=== PATIENT | female | born 1990 | race Caucasian/White ===

== ENCOUNTER 2018-04-28 01:05 | Inpatient (IN) | payer BC, OTHER ==
[2018-04-28] MEDS ORDERED: ONDANSETRON 4 MG/2 ML VIAL IVP ONE (01:20)
[2018-04-28] MEDS ORDERED: NS 1,000 ML IV ONE ×2 (01:20)
[2018-04-28] MEDS ORDERED: KETOROLAC 15 MG/1 ML SDV IVP ONE (01:21)
--- NOTE | 2018-04-28 01:24 | EDPHY ---
H & P Stated Complaint: abd pain, N/V x 4 hours, decreased urine Time Seen by Provider: 04/28/18 01:14 HPI/ROS: HPI The patient presents with abdominal pain with nausea and vomiting which began earlier tonight. Symptoms started about 8 hr ago with a dull left-sided abdominal pain which became sharp in nature. The pain is associated with nausea and subsequently 3 episodes of nonbloody nonbilious emesis. She says that the pain began to spread and is now throughout her abdomen and mostly sharp in nature. It was worse when she drink water and worse when she moves around. She has never had this pain before. She denies any diarrhea, constipation, fever. She did note that her urine was very dark and she questions if she is dehydrated. Her last menstrual period was 1 week ago and was normal for her. She does not have any vaginal discharge. REVIEW OF SYSTEMS 10 systems were reviewed and negative with the exception of the elements mentioned in the history of present illness. PMHx: Healthy Soc Hx: FHx: PHYSICAL General Appearance: Alert, uncomfortable appearing Eyes: Pupils equal and round no pallor or injection ENT, Mouth: Mucous membranes dry Respiratory: There are no retractions, lungs are clear to auscultation Cardiovascular: Regular rate and rhythm Gastrointestinal: Abdomen is soft and tender in the left lower and upper quadrants, there is no rebound or guarding Neurological: A&O, moves all extremities Skin: Warm and dry, no rashes Musculoskeletal: Neck is supple non tender Extremities: symmetrical, full range of motion Psychiatric: Patient is oriented X 3, there is no agitation Source: Patient Exam Limitations: No limitations - Personal History Current Tetanus/Diphtheria Vaccine: Unsure Current Tetanus Diphtheria and Acellular Pertussis (TDAP): Unsure - Medical/Surgical History Hx Asthma: No Hx Chronic Respiratory Disease: No Hx Diabetes: No Hx Cardiac Disease: No Hx Renal Disease: No Hx Cirrhosis: No Hx Alcoholism: No Hx HIV/AIDS: No Hx Splenectomy or Spleen Trauma: No - Social History Smoking Status: Current every day smoker Constitutional: Initial Vital Signs Temperature (C) 36.4 C 04/28/18 01:08 Heart Rate 90 04/28/18 01:08 Respiratory Rate 20 04/28/18 01:08 Blood Pressure 125/77 H 04/28/18 01:08 O2 Sat (%) 98 04/28/18 01:08 O2 Delivery Mode Room Air Allergies/Adverse Reactions: No Known Allergies Allergy (Unverified 04/28/18 01:07) Home Medications: Medication Instructions Recorded NK [No Known Home Meds] 04/28/18 Medical Decision Making - Diagnostics Imaging Results: Pelvic ultrasound shows trace amount of free fluid with no acute findings, discussed with Dr. Crane of Radiology. CT scan abdomen pelvis with IV contrast demonstrates likely perforated diverticulitis with pneumoperitoneum, discussed with Dr. Crane of Radiology. Differential Diagnosis: 27-year-old healthy female presents with 8 hr of what was initially left-sided abdominal pain which is now spread throughout her abdomen is associated with nausea and vomiting. Differential diagnosis includes diverticulitis, ovarian cyst with rupture, ovarian torsion, ureterolithiasis, pyelonephritis, appendicitis. In the emergency department, patient was given IV fluids and medication for pain. Labs were checked and revealed a leukocytosis. Pelvic ultrasound was performed and was unremarkable. I reassessed the patient and she had ongoing tenderness on exam. Thus, decision was made for CT scan which demonstrated perforated diverticulitis with free air. Patient was given broad-spectrum antibiotics. I consulted with the on-call general surgeon Dr. Graham. He will take the patient directly to the operating room. Of note, patient's mother suffers from diverticulitis and patient reports that she has had mild left lower quadrant abdominal pain for the last 2 weeks which she thought was gas. - Data Points Laboratory Results: Laboratory Results 04/28/18 01:20 04/28/18 01:20 04/28/18 04/28/18 04/28/18 03:30 01:20 01:20 WBC RBC Hgb Hct MCV MCH MCHC RDW Plt Count MPV Neut % (Auto) Lymph % (Auto) [place] % (Auto) Eos % (Auto) Baso % (Auto) Nucleat RBC Rel Count Absolute Neuts (auto) Absolute Lymphs (auto) Absolute Monos (auto) Absolute Eos (auto) Absolute Basos (auto) Absolute Nucleated RBC Immature Gran % Immature Gran # Sodium 139 mEq/L mEq/L (135-145) Potassium 4.3 mEq/L mEq/L (3.3-5.0) Chloride 101 mEq/L mEq/L (97-110) Carbon Dioxide 25 mEq/l mEq/l (22-31) Anion Gap 13 mEq/L mEq/L (6-14) BUN 13 mg/dL mg/dL (7-23) Creatinine 0.6 mg/dL mg/dL (0.6-1.0) Estimated GFR > 60 Glucose 128 mg/dL H mg/dL (70-100) Calcium 9.9 mg/dL mg/dL (8.5-10.4) Total Bilirubin 1.0 mg/dL mg/dL (0.1-1.4) Conjugated Bilirubin 0.2 mg/dL mg/dL (0.0-0.5) Unconjugated Bilirubin 0.8 mg/dL mg/dL (0.0-1.1) AST 27 IU/L IU/L (14-46) ALT 33 IU/L IU/L (9-52) Alkaline Phosphatase 77 IU/L IU/L (38-126) Total Protein 8.4 g/dL H g/dL (6.3-8.2) Albumin 4.7 g/dL g/dL (3.5-5.0) Lipase 157 IU/L IU/L (23-300) Beta HCG, Qual NEGATIVE Urine Color YELLOW Urine Appearance CLEAR Urine pH 5.0 (5.0-7.5) Ur Specific [place] > 1.035 H (1.002-1.030) Urine Protein NEGATIVE (NEGATIVE) Urine Ketones 1+ H (NEGATIVE) Urine Blood NEGATIVE (NEGATIVE) Urine Nitrate NEGATIVE (NEGATIVE) Urine Bilirubin NEGATIVE (NEGATIVE) Urine Urobilinogen NEGATIVE EU EU (0.2-1.0) Ur Leukocyte Esterase NEGATIVE (NEGATIVE) Urine Glucose NEGATIVE (NEGATIVE) 04/28/18 01:20 WBC 14.61 10^3/uL H 10^3/uL (3.80-9.50) RBC 4.88 10^6/uL 10^6/uL (4.18-5.33) Hgb 15.6 g/dL g/dL (12.6-16.3) Hct 45.0 % % (38.0-47.0) MCV 92.2 fL fL (81.5-99.8) MCH 32.0 pg pg (27.9-34.1) MCHC 34.7 g/dL g/dL (32.4-36.7) RDW 12.7 % % (11.5-15.2) Plt Count 310 10^3/uL 10^3/uL (150-400) MPV 10.0 fL fL (8.7-11.7) Neut % (Auto) 84.8 % H % (39.3-74.2) Lymph % (Auto) 10.5 % L % (15.0-45.0) [place] % (Auto) 3.6 % L % (4.5-13.0) Eos % (Auto) 0.5 % L % (0.6-7.6) Baso % (Auto) 0.3 % % (0.3-1.7) Nucleat RBC Rel Count 0.0 % % (0.0-0.2) Absolute Neuts (auto) 12.38 10^3/uL H 10^3/uL (1.70-6.50) Absolute Lymphs (auto) 1.54 10^3/uL 10^3/uL (1.00-3.00) Absolute Monos (auto) 0.52 10^3/uL 10^3/uL (0.30-0.80) Absolute Eos (auto) 0.08 10^3/uL 10^3/uL (0.03-0.40) Absolute Basos (auto) 0.04 10^3/uL 10^3/uL (0.02-0.10) Absolute Nucleated RBC 0.00 10^3/uL 10^3/uL (0-0.01) Immature Gran % 0.3 % % (0.0-1.1) Immature Gran # 0.05 10^3/uL 10^3/uL (0.00-0.10) Sodium Potassium Chloride Carbon Dioxide Anion Gap BUN Creatinine Estimated GFR Glucose Calcium Total Bilirubin Conjugated Bilirubin Unconjugated Bilirubin AST ALT Alkaline Phosphatase Total Protein Albumin Lipase Beta HCG, Qual Urine Color Urine Appearance Urine pH Ur Specific [place] Urine Protein Urine Ketones Urine Blood Urine Nitrate Urine Bilirubin Urine Urobilinogen Ur Leukocyte Esterase Urine Glucose Medications Given: Discontinued Medications Hydromorphone HCl (Dilaudid) 0.5 mg IVP EDNOW ONE Stop: 04/28/18 02:13 Last Admin: 04/28/18 02:15 Dose: 0.5 mg Hydromorphone HCl (Dilaudid) 0.5 mg IVP EDNOW ONE Stop: 04/28/18 03:51 Last Admin: 04/28/18 04:12 Dose: 0.5 mg Sodium Chloride (Ns) 1,000 mls @ 0 mls/hr IV EDNOW ONE; Wide Open PRN Reason: Protocol Stop: 04/28/18 01:21 Last Admin: 04/28/18 01:25 Dose: 1,000 mls Sodium Chloride (Ns) 1,000 mls @ 0 mls/hr IV EDNOW ONE; Wide Open PRN Reason: Protocol Stop: 04/28/18 01:21 Last Admin: 04/28/18 01:25 Dose: 1,000 mls Ceftriaxone Sodium/Dextrose (Rocephin 1 Gm (Premix)) 50 mls @ 100 mls/hr IV EDNOW ONE PRN Reason: Protocol Stop: 04/28/18 04:10 Last Admin: 04/28/18 03:51 Dose: 50 mls Metronidazole/Sodium Chloride (Flagyl 500 Mg (Premix)) 100 mls @ 100 mls/hr IV EDNOW ONE PRN Reason: Protocol Stop: 04/28/18 04:40 Last Admin: 04/28/18 04:12 Dose: 100 mls Ketorolac Tromethamine (Toradol) 15 mg IVP EDNOW ONE Stop: 04/28/18 01:22 Last Admin: 04/28/18 01:25 Dose: 15 mg Ondansetron HCl (Zofran) 4 mg IVP EDNOW ONE Stop: 04/28/18 01:21 Last Admin: 04/28/18 01:25 Dose: 4 mg Departure - Departure Disposition: [facility] Acute Clinical Impression: Diverticulitis, Pneumoperitoneum, Leukocytosis Condition: Fair
[2018-04-28 01:26] LABS: PLATELET COUNT 310 10^3/uL (150-400)
[2018-04-28] MEDS ORDERED: HYDROmorphONE/DILAUDID 2 MG/ML INJ IVP ONE ×2 (02:12→03:50)
[2018-04-28] MEDS ORDERED: IOPAMIDOL (ISOVUE 370) 100 ML BTL IV ONE (03:10)
--- NOTE | 2018-04-28 04:28 | PDGENHP ---
History and Physical - Chief Complaint abdominal pain - History of Present Illness Patient is an otherwise healthy 27yo female who presents with acute onset abdominal pain. States that she has had some vague abdominal pain for the past month or so which has caused her to miss work a few times. It has been getting progressively worse over the past week and she was going to see her PCP but the pain got acutely worse last night. PReviously, her pain was described as LLQ, vague, crampy 4/10 in intensity. This evening it progressed to her entire abdomen and is 9/10 and is sharp and constant. No fevers, no chills, no nausea, no vomiting. History Information - Allergies/Home Medication List Allergies/Adverse Reactions: No Known Allergies Allergy (Unverified 04/28/18 01:07) Home Medications: NK [No Known Home Meds] 04/28/18 [Last Taken Unknown] I have personally reviewed and updated: family history, medical history, social history, surgical history - Past Medical History Additional medical history: anxiety - Surgical History Reports: no pertinent surgical hx - Family History Additional family history: mom has had diverticulitis - Social History Smoking Status: Current every day smoker Alcohol Use: Occasionally Additional social history: works at [employer] Review of Systems Review of Systems: ROS: 10pt was reviewed & negative except for what was stated in HPI & below Physical Exam Physical Exam: Temp Pulse Resp BP Pulse Ox 36.7 C 97 18 106/71 95 04/28/18 03:30 04/28/18 04:17 04/28/18 04:17 04/28/18 04:17 04/28/18 04:17 Constitutional: appears nourished, uncomfortable Eyes: PERRL, anicteric sclera, EOMI Ears, Nose, Mouth, Throat: moist mucous membranes, hearing normal, ears appear normal, no oral mucosal ulcers Cardiovascular: regular rate and rhythym, no murmur, rub, or gallop, No edema Respiratory: no respiratory distress, no rales or rhonchi, clear to auscultation Gastrointestinal: other (TTP in all quadrants, +rebound, +guarding, she is peritoneal) Genitourinary: no bladder fullness, no bladder tenderness Skin: warm, normal color, no rashes or abrasions, no fluctuance, no induration, No mottled Musculoskeletal: full muscle strength, no muscle tenderness, normal joint ROM, no joint effusions Psychiatric: interacting appropriately, not anxious, not encephalopathic, thought process linear Lymph, Heme, Immunologic: no cervical LAD, no supraclavicular LAD Lab Data & Imaging Review 04/28/18 01:20 04/28/18 01:20 WBC 14.61 10^3/uL (3.80-9.50) H 04/28/18 01:20 RBC 4.88 10^6/uL (4.18-5.33) 04/28/18 01:20 Hgb 15.6 g/dL (12.6-16.3) 04/28/18 01:20 Hct 45.0 % (38.0-47.0) 04/28/18 01:20 MCV 92.2 fL (81.5-99.8) 04/28/18 01:20 MCH 32.0 pg (27.9-34.1) 04/28/18 01:20 MCHC 34.7 g/dL (32.4-36.7) 04/28/18 01:20 RDW 12.7 % (11.5-15.2) 04/28/18 01:20 Plt Count 310 10^3/uL (150-400) 04/28/18 01:20 MPV 10.0 fL (8.7-11.7) 04/28/18 01:20 Neut % (Auto) 84.8 % (39.3-74.2) H 04/28/18 01:20 Lymph % (Auto) 10.5 % (15.0-45.0) L 04/28/18 01:20 [place] % (Auto) 3.6 % (4.5-13.0) L 04/28/18 01:20 Eos % (Auto) 0.5 % (0.6-7.6) L 04/28/18 01:20 Baso % (Auto) 0.3 % (0.3-1.7) 04/28/18 01:20 Nucleat RBC Rel Count 0.0 % (0.0-0.2) 04/28/18 01:20 Absolute Neuts (auto) 12.38 10^3/uL (1.70-6.50) H 04/28/18 01:20 Absolute Lymphs (auto) 1.54 10^3/uL (1.00-3.00) 04/28/18 01:20 Absolute Monos (auto) 0.52 10^3/uL (0.30-0.80) 04/28/18 01:20 Absolute Eos (auto) 0.08 10^3/uL (0.03-0.40) 04/28/18 01:20 Absolute Basos (auto) 0.04 10^3/uL (0.02-0.10) 04/28/18 01:20 Absolute Nucleated RBC 0.00 10^3/uL (0-0.01) 04/28/18 01:20 Immature Gran % 0.3 % (0.0-1.1) 04/28/18 01:20 Immature Gran # 0.05 10^3/uL (0.00-0.10) 04/28/18 01:20 Sodium 139 mEq/L (135-145) 04/28/18 01:20 Potassium 4.3 mEq/L (3.3-5.0) 04/28/18 01:20 Chloride 101 mEq/L (97-110) 04/28/18 01:20 Carbon Dioxide 25 mEq/l (22-31) 04/28/18 01:20 Anion Gap 13 mEq/L (6-14) 04/28/18 01:20 BUN 13 mg/dL (7-23) 04/28/18 01:20 Creatinine 0.6 mg/dL (0.6-1.0) 04/28/18 01:20 Estimated GFR > 60 04/28/18 01:20 Glucose 128 mg/dL (70-100) H 04/28/18 01:20 Calcium 9.9 mg/dL (8.5-10.4) 04/28/18 01:20 Total Bilirubin 1.0 mg/dL (0.1-1.4) 04/28/18 01:20 Conjugated Bilirubin 0.2 mg/dL (0.0-0.5) 04/28/18 01:20 Unconjugated Bilirubin 0.8 mg/dL (0.0-1.1) 04/28/18 01:20 AST 27 IU/L (14-46) 04/28/18 01:20 ALT 33 IU/L (9-52) 04/28/18 01:20 Alkaline Phosphatase 77 IU/L (38-126) 04/28/18 01:20 Total Protein 8.4 g/dL (6.3-8.2) H 04/28/18 01:20 Albumin 4.7 g/dL (3.5-5.0) 04/28/18 01:20 Lipase 157 IU/L (23-300) 04/28/18 01:20 Beta HCG, Qual NEGATIVE 04/28/18 01:20 Urine Color YELLOW 04/28/18 03:30 Urine Appearance CLEAR 04/28/18 03:30 Urine pH 5.0 (5.0-7.5) 04/28/18 03:30 Ur Specific [place] > 1.035 (1.002-1.030) H 04/28/18 03:30 Urine Protein NEGATIVE (NEGATIVE) 04/28/18 03:30 Urine Ketones 1+ (NEGATIVE) H 04/28/18 03:30 Urine Blood NEGATIVE (NEGATIVE) 04/28/18 03:30 Urine Nitrate NEGATIVE (NEGATIVE) 04/28/18 03:30 Urine Bilirubin NEGATIVE (NEGATIVE) 04/28/18 03:30 Urine Urobilinogen NEGATIVE EU (0.2-1.0) 04/28/18 03:30 Ur Leukocyte Esterase NEGATIVE (NEGATIVE) 04/28/18 03:30 Urine Glucose NEGATIVE (NEGATIVE) 04/28/18 03:30 Visualized and Interpreted imaging results: Yes Interpretation: sig amt of free air, free fluid in pelvis. Distal colon looks mildly thickened c/w likely perforated divertic Assessment & Plan Plan: 27yo Female with perorated viscus and moderate amt of free air in abdomen - source is likely sigmoid colon - IV abx - plan for OR, ex-lap, colectomy, possible colostomy. I discussed all these possibilities with the patient in the ED. She is amenable and wishes to proceed with surgery
[2018-04-28] MEDS ORDERED: MIDAZOLAM 2 MG/2 ML VIAL ONE (04:56)
[2018-04-28] MEDS ORDERED: fentaNYL 100 MCG/2 ML INJ ONE ×3 (04:57→07:28)
[2018-04-28] MEDS ORDERED: PROPOFOL 200 MG/20 ML VIAL ONE (04:57)
--- NOTE | 2018-04-28 05:25 | PDANEPAE ---
ANE Past Medical History - Pulmonary History Hx Oxygen in Use at Home: No Hx Sleep Apnea: No - Endocrine History Hx Diabetes: No - Chronic Pain History Chronic Pain: No ANE Review of Systems Review of Systems: ANE Patient History - Allergies Allergies/Adverse Reactions: No Known Allergies Allergy (Unverified 04/28/18 01:07) - Home Medications Home Medications: NK [No Known Home Meds] 04/28/18 [Last Taken Unknown] - NPO status NPO Since - Liquids (Date): 04/27/18 NPO Since - Liquids (Time): 18:00 NPO Since - Solids (Date): 04/27/18 NPO Since - Solids (Time): 18:00 - Smoking Hx Smoking Status: Current every day smoker - Alcohol Use Alcohol Use: Occasionally ANE Labs/Vital Signs - Labs Result Diagrams: 04/28/18 01:20 04/28/18 01:20 - Vital Signs Blood Pressure: 112/65 Heart Rate: 75 Respiratory Rate: 16 O2 Sat (%): 97 Height: 172.72 cm Weight: 74.843 kg ANE Physical Exam - Airway Mallampati Score: Class 1 - ASA Status ASA Status: I, E ANE Anesthesia Plan Anesthesia Plan: general endotracheal anesthesia Urgent/Emergent Case: Rakesh heredia completed preop but documented later for safe timely pt care
[2018-04-28] MEDS ORDERED: METOCLOPRAMIDE 10 MG/2 ML VIAL ONE (05:41)
[2018-04-28] MEDS ORDERED: ROCURONIUM 50 MG/5 ML VIAL ONE (05:41)
[2018-04-28] MEDS ORDERED: ONDANSETRON 4 MG/2 ML VIAL ONE ×2 (05:41→07:30)
[2018-04-28] MEDS ORDERED: ONDANSETRON 4 MG/2 ML VIAL IVP PRN ×2 (07:20→07:27)
[2018-04-28] MEDS ORDERED: ONDANSETRON DISINTEGRATING 4 MG TAB PO PRN (07:20)
[2018-04-28] MEDS ORDERED: ACETAMINOPHEN 325 MG TAB PO PRN (07:20)
[2018-04-28] MEDS ORDERED: PROMETHAZINE HCL 25 MG/ML INJ IVP PRN ×2 (07:20→07:27)
[2018-04-28] MEDS: fentaNYL 100 MCG/2 ML INJ IVP PRN ×2 (07:20→07:54)
--- NOTE | 2018-04-28 07:20 | POSTOPPROG ---
Post Op Note Date of Operation: 04/28/18 Surgeon: Osmani Graham Anesthesiologist: Dean Anesthesia: GET(General Endotracheal) Pre-op Diagnosis: perforated viscus Post-op Diagnosis: perforated descending colon, purulent peritonitis Procedure: ex-lap, descending colectomy, mob splenic flexure, appendectomy Findings: purulent fluid in abdomen, focal perf, resected and anastomosed Inf/Abcess present in the surg proc area at time of surgery?: Yes Depth: Organ Space EBL: Minimal Total fluids administered: 6000cc NS washout Specimen(s): descending colon
[2018-04-28] MEDS ORDERED: NALOXONE HCL 0.4 MG/ML INJ IVP PRN ×2 (07:23→07:27)
[2018-04-28] MEDS ORDERED: LR 500 ML IV PRN (07:27)
--- NOTE | 2018-04-28 07:29 | POSTANESTH ---
Post Anesthetic Evaluation Cardiovascular Status: Normal, Stable Respiratory Status: Normal, Stable Level of Consciousness/Mental Status: Can Participate in Eval Pain Control: Adequate, Prn Tx Ordered Nausea/Vomiting Control: Adequate, Prn Tx Ordered Complications Possibly Related to Anesthesia: None Noted
[2018-04-28] MEDS: HYDROmorphONE/DILAUDID 2 MG/ML INJ IVP PRN ×3 (07:33→08:53)
[2018-04-28] MEDS ORDERED: HYDROmorphONE/DILAUDID 2 MG/ML INJ ONE (07:37)
[2018-04-28] MEDS ORDERED: PROMETHAZINE HCL 25 MG/ML INJ ONE (07:50)
--- NOTE | 2018-04-28 09:26 | PDMN ---
Medical Necessity Medical necessity: Pt meets inpt criteria per MD order and [id number], Bowel Surgery: Colectomy, Partial, with or without Ostomy, by Laparoscopy, 3 days. Pt presenting w/increasing/severe abdominal pain, admitted w/perforated viscus and moderate amt free air in abdomen requiring surgical intervention: pt underwent ex-lap, descending colectomy, mob splenic flexure, and appendectomy. Anticiapte> 2MN for med nec ongoing post-op care after above surgery.
[2018-04-28] MEDS: D5W 1/2 NS W/ 20 KCl/L 1,000 ML IV SCH ×2 (09:37→20:46)
[2018-04-28] MEDS: HYDROmorphONE/DILAUDID 6 MG/30 ML PCA IV PRN ×2 (10:16→22:38)
--- NOTE | 2018-04-28 11:24 | GOP ---
DATE OF OPERATION: 04/28/2018 SURGEON: Osmani Graham MD PERSONNEL OFFICER: None. ANESTHESIA: General endotracheal. ANESTHESIOLOGIST: Bob Moran MD. PREOPERATIVE DIAGNOSIS: Perforated viscus. POSTOPERATIVE DIAGNOSIS: Intraabdominal free air and peritonitis secondary to perforated descending colon. PROCEDURE PERFORMED: 1. Exploratory laparotomy. 2. Resection of descending colon with reanastomosis. 3. Mobilization of splenic flexure. 4. Appendectomy. FINDINGS: There was purulent fluid upon entering the patient's abdomen. This was washed out. I turned my attention toward the patient's sigmoid colon which was mobilized and normal appearing. There was a focal perforation in the descending colon at the point where it transitioned likely into the sigmoid. I found no other significant pathology. This was subsequently resected and reanastomosed. An appendectomy was performed as the appendix appeared injected , likely from sitting in pus for a day or so. SPECIMENS: Appendix and descending colon. ESTIMATED BLOOD LOSS: 10 cc. DESCRIPTION OF PROCEDURE: The patient was greeted in the preoperative suite. Once again, risks, benefits, and alternatives were discussed. Consent was signed. She was then brought back to the operative suite, placed on the OR table in supine position. After all anesthesia machines including SCDs were on and functioning, a [employer] time-out was performed. After successful induction of general anesthesia, the patient was placed in low lithotomy position with all pressure points appropriately padded. A Dee catheter was placed. Her abdomen was prepped and draped in the typical sterile fashion. I commenced the procedure by making a generous midline incision, carrying it down through the subcutaneous tissue. The fascia was opened via the midline. Upon entering the abdomen, there was purulent fluid extruding from the abdomen and appropriate cultures were taken. The fluid was then washed out. Retractors were placed. I turned my attention toward the sigmoid colon which was disease free. I found no tics throughout the colon. While examining the descending colon, I found a focal area of perforation which had been walled off by some fat. I found no other significant pathology and the remainder of the bowel honestly looked healthy. I first irrigated the patient with 6 L sterile saline, removing all purulent fluid and noting clear effluent in the suction canister. I made the decision at this point in time to resect that portion using multiple fires of the TEJAL blue load stapler. After resection, the mesentery was taken with the Harmonic scalpel for reanastomosis. As we were significantly high in the descending colon, I chose to do a stapled anastomosis using again the TEJAL-75 blue load stapler, created a common colotomy. Common colotomy was closed with an additional staple fire and the staple line was oversewn. The mesentery was then run closed with a running 3-0 Vicryl. The anastomosis was hemostatic and widely patent. The appendix was inspected and it appeared somewhat injected but not frankly perforated. I created a defect at the base of the cecum, successfully stapled off the appendix, and took the mesoappendix with the Harmonic scalpel as the cecal base appeared healthy. The specimen was passed off. Clean closure was then brought into the field. The fascia was closed with a running #1 PDS suture. Subcutaneous tissue was irrigated and the skin was closed with manisha, over which a sterile dressing was placed. The patient was then extubated in the operative suite and taken to the PACU in satisfactory condition. DRAINS: None. COUNTS: All counts were reported as correct x2. /[id number]/MODL MTDD
[2018-04-29 06:16] LABS: PLATELET COUNT 205 10^3/uL (150-400)
[2018-04-29] MEDS: D5W 1/2 NS W/ 20 KCl/L 1,000 ML IV SCH ×2 (08:57→20:01)
--- NOTE | 2018-04-29 09:12 | SOAPPROG ---
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 Talked with her on how the system works. Also added PO muscle relaxer - ambulate today - continue clears, she is tolerating but doesnt have much bowel function - slow progress Plan: 04/29/18 09:09 Subjective: lot of pain this AM Objective: Vital Signs Temp Pulse Resp BP Pulse Ox 37.1 C 79 12 111/73 97 04/29/18 07:57 04/29/18 07:57 04/29/18 07:57 04/29/18 07:57 04/29/18 07:57 Microbiology 04/28/18 05:50 Gram Stain - Final Peritoneal Fluid - Anaerobic Tube/Swab Laboratory Results 04/29/18 04:25 04/29/18 04:25 04/28/18 04/29/18 04/30/18 05:59 05:59 05:59 Intake Total 2100 3771 1012 Output Total 3225 Balance 2100 546 1012 ICD10 Worksheet Patient Problems: Problems Problem Status Onset Diverticulitis Acute Leukocytosis Acute Pneumoperitoneum Acute
[2018-04-29] MEDS: CYCLOBENZAPRINE 10 MG TAB PO SCH ×3 (09:51→21:39)
[2018-04-29] MEDS: HYDROmorphONE/DILAUDID 6 MG/30 ML PCA IV PRN (12:41)
[2018-04-30 05:47] LABS: PLATELET COUNT 192 10^3/uL (150-400)
[2018-04-30] MEDS: D5W 1/2 NS W/ 20 KCl/L 1,000 ML IV SCH ×2 (05:58→16:57)
[2018-04-30] MEDS: HYDROmorphONE/DILAUDID 6 MG/30 ML PCA IV PRN ×2 (06:06→23:29)
[2018-04-30] MEDS: CYCLOBENZAPRINE 10 MG TAB PO SCH ×3 (08:06→22:03)
--- NOTE | 2018-04-30 09:09 | SOAPPROG ---
SOAP Progress Note Assessment/Plan: Assessment: 27yo F s/p ex-lap, colectomy, washout for colon perforation S: "Tired". 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 Got up oob some yesterday. Denies passing gas or BM yet. Tolerating clears, although did not have much yesterday. Denies nausea. O: Alert Afebrile VSS RRR No increased WOB Abdomen: soft, ttp, incision cdi, hypoactive BS Plan: Continue clears. D/c goldstein catheter. 04/30/18 09:06 Objective: Vital Signs Temp Pulse Resp BP Pulse Ox 37.0 C 61 16 95/48 L 91 L 04/30/18 07:49 04/30/18 07:49 04/30/18 07:49 04/30/18 07:49 04/30/18 07:49 Microbiology 04/28/18 05:50 Gram Stain - Final Peritoneal Fluid - Anaerobic Tube/Swab Laboratory Results 04/30/18 04:36 04/30/18 04:36 04/29/18 04/30/18 05/01/18 05:59 05:59 05:59 Intake Total 3771 3312 Output Total 8758 2054 Balance 546 1262 ICD10 Worksheet Patient Problems: Problems Problem Status Onset Diverticulitis Acute Leukocytosis Acute Pneumoperitoneum Acute
--- NOTE | 2018-04-30 13:28 | ASMTCMCOM ---
CM Note CM Note Notes: Pt is a 27 y/o female admitted for perforated diverticulitis. Pt went to surgery w/ Dr. Graham. Pt will d/c independent when medically stable. No therapies ordered at this time. CM available for changes. Plan: Independent Date Signed: 04/30/2018 01:27 PM Electronically Signed By:DERICK Babcock
[2018-05-01] MEDS: D5W 1/2 NS W/ 20 KCl/L 1,000 ML IV SCH (05:27)
[2018-05-01] MEDS: CYCLOBENZAPRINE 10 MG TAB PO SCH ×3 (09:32→21:38)
[2018-05-01] MEDS: DOCUSATE SODIUM 100 MG CAP PO SCH ×2 (13:49→21:38)
[2018-05-01] MEDS ORDERED: 1/2 NS 1,000 ML IV SCH (17:30)
[2018-05-01] MEDS ORDERED: NS 1,000 ML IV SCH (18:00)
[2018-05-01] MEDS: HYDROmorphONE/DILAUDID 6 MG/30 ML PCA IV PRN (19:26)
--- NOTE | 2018-05-01 20:02 | GCON ---
INFECTIOUS DISEASE CONSULTATION DATE OF CONSULTATION: 05/01/2018 REQUESTING PHYSICIAN: Osmani Graham M.D. REASON FOR CONSULTATION: Colonic perforation. HISTORY OF PRESENT ILLNESS: The patient is a 27-year-old female who I am asked to see in consultation for a colonic perforation felt to be most likely related to diverticular disease. The patient describes having approximately 2 months of intermittent left lower quadrant pain. This was associated with episodic fever and chills as well as night sweats. The patient notes that she developed more significant pain in the left lower quadrant over the last 2 weeks. This subsequently was followed by more severe diffuse abdominal pain prompting her evaluation in the emergency department. She did note associated nausea, vomiting and diarrhea. At the time of evaluation in the emergency department, she was noted to have a white blood cell count of 14.6. CT scan of the abdomen and pelvis was performed which showed transmural wall thickening with pericolonic inflammatory stranding in the distal descending colon with adjacent extraluminal air and pneumoperitoneum. She was taken to the operating room based on this finding, where there was no overt diverticulitis present but a perforation was localized in the descending colon where it transitioned to the sigmoid colon. Purulent fluid without feculent material was noted in the patient's abdominal cavity. The appendix was also removed given the presence of intraabdominal purulence. The patient had the area of perforation resected and she underwent reanastomosis. Gram stain of the peritoneal fluid showed 4+ white blood cells with no organisms being seen and has grown 3 different species of Bacteroides. The patient has been receiving ceftriaxone and metronidazole. Pathologic specimen was consistent with acute and chronic diverticulitis. Given the above findings, I am now asked to assist in her ongoing management. PAST MEDICAL HISTORY: Anxiety. PAST SURGICAL HISTORY: As above. CURRENT MEDICATIONS: Ceftriaxone 1 g IV daily, Flagyl 500 mg IV q.8 hours, Dilaudid GELATIN MAKER UTILITY, Flexeril 10 mg p.o. three times daily, Colace 100 mg p.o. twice daily, Zofran as needed. ALLERGIES: No known drug allergies. SOCIAL HISTORY: Patient smokes 1 pack per day. She drinks 2 alcoholic beverages daily. No history of injection drug use. FAMILY HISTORY: Diverticulitis. REVIEW OF SYSTEMS: Outside that noted in the HPI, remainder of 10-system review is unremarkable other than the patient has not started passing gas or taking oral intake. PHYSICAL EXAMINATION: VITAL SIGNS: Temperature 36.6, heart rate 76, respiratory rate 16, blood pressure 116/79, oxygen saturation 97% on room air. GENERAL: Patient is well nourished, well developed in no acute distress. She appears nontoxic. HEENT: There is no scleral icterus, conjunctival injection, or conjunctival petechiae. Oropharynx is clear with moist mucous membranes. Dentition in fair repair. No nasal discharge or sinus tenderness. NECK: Supple without palpable lymphadenopathy or thyromegaly. CHEST: Clear to auscultation bilaterally without adventitious sounds. Respiratory effort is normal. CARDIOVASCULAR: Regular rate and rhythm with a 2/6 systolic ejection murmur heard throughout. No gallops or rubs noted. ABDOMEN: Soft, mildly tender in the left lower quadrant. Midline incision shows intact staple line without erythema or drainage. Bowel sounds are not present. There is mild distention. MUSCULOSKELETAL: No cyanosis, clubbing, or edema. SKIN: No rashes present. No stigmata of endocarditis. Skin is warm and dry to touch. NEUROLOGIC: The patient is alert and interacts appropriately with examiner. Cranial nerves 2-12 are grossly intact. Sensation is grossly intact. Muscle tone and bulk are normal. LYMPHATICS: No cervical or supraclavicular nodes palpable. LABORATORY DATA: White blood cell count 6.8, hematocrit 33.0, platelets 192, neutrophils 48%, lymphocytes 41%. Serum creatinine 0.6. Beta HCG negative, urinalysis 1+ ketones at time of presentation. Cultures as outlined above, showing [address] scan as outlined above which was reviewed and interpreted by me. Pathologic specimen as outlined above. IMPRESSION: 1. Peritonitis associated with colonic perforation: The patient's pathologic specimen is felt to be compatible with diverticulitis, although this was not noted grossly intraoperatively. She is now status post resection of perforated area of colon. Culture show 3 species of Bacteroides, which is typical for enteric nitin. She is also at risk for gram-negative rods, although these have not been isolated to date. Currently, she is receiving ceftriaxone and metronidazole which is appropriate coverage for this disease entity. Ultimately , she can complete therapy with oral antibiotics when she is tolerating oral intake. Consideration would be for levofloxacin 750 mg orally daily and metronidazole 500 mg three times daily to complete 7 days of therapy. Side effects of antibiotic therapy will need to be reviewed with patient at time of transition to these. This would include ensuring patient is aware of potential risk of tendinopathy associated with use of fluoroquinolones and need to avoid alcohol intake with use of metronidazole. RECOMMENDATIONS: 1. Agree with ceftriaxone 1 g IV daily. 2. Agree with metronidazole 500 mg IV q.8 hours. 3. Anticipate transition to oral levofloxacin 750 mg p.o. daily and metronidazole 500 mg p.o. three times daily x7 days at the time of discharge ( depending on timing of transition to oral antibiotics with limited antibiotic therapy in total to 7-10 days). 4. Clinical findings and plan were reviewed with the patient today. Thank you for this consultation. /[id number]/MODL MTDSia
[2018-05-02 04:57] LABS: PLATELET COUNT 210 10^3/uL (150-400)
[2018-05-02] MEDS: DOCUSATE SODIUM 100 MG CAP PO SCH ×2 (08:16→20:59)
[2018-05-02] MEDS: CYCLOBENZAPRINE 10 MG TAB PO SCH ×3 (08:16→20:59)
[2018-05-02] MEDS: oxyCODONE IR 5 MG TAB PO PRN ×4 (10:54→20:59)
--- NOTE | 2018-05-02 12:29 | SOAPPROG ---
SOAP Progress Note Assessment/Plan: Assessment: 27yo F s/p ex-lap, colectomy, washout for colon perforation - VSS, HDs - pain and distention a little better today, she does have bowel sounds. 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 WBC WNL, progressing slowly Plan: 04/29/18 09:09 05/02/18 12:28 Subjective: wishes she had more bowel function Objective: Vital Signs Temp Pulse Resp BP Pulse Ox 36.4 C 74 18 123/85 H 94 05/02/18 11:48 05/02/18 11:48 05/02/18 11:48 05/02/18 11:48 05/02/18 11:48 Microbiology 04/28/18 05:50 Gram Stain - Final Peritoneal Fluid - Anaerobic Tube/Swab Laboratory Results 05/02/18 04:45 04/30/18 04:36 05/01/18 05/02/18 05/03/18 05:59 05:59 05:59 Intake Total 1390 500 Output Total 2900 Balance -1510 500 ICD10 Worksheet Patient Problems: Problems Problem Status Onset Diverticulitis Acute Leukocytosis Acute Pneumoperitoneum Acute
--- NOTE | 2018-05-02 16:03 | ASMTCMCOM ---
CM Note CM Note Notes: Pt still recovering from perforated diverticulitis but plan remains the same. Pt will dc independent when medically stable. CM available for any changes. DC Plan: Independent Date Signed: 05/02/2018 04:02 PM Electronically Signed By:Padmini Mi RN
[2018-05-02] MEDS: IBUPROFEN 200 MG TAB PO PRN ×2 (16:21→21:00)
[2018-05-02] MEDS: metroNIDAZOLE 500 MG TAB PO SCH (20:59)
[2018-05-03] MEDS: metroNIDAZOLE 500 MG TAB PO SCH ×3 (05:01→21:43)
[2018-05-03] MEDS: IBUPROFEN 200 MG TAB PO PRN ×4 (05:03→20:35)
[2018-05-03 05:32] LABS: PLATELET COUNT 233 10^3/uL (150-400)
[2018-05-03] MEDS: CYCLOBENZAPRINE 10 MG TAB PO SCH ×3 (09:46→21:43)
[2018-05-03] MEDS: DOCUSATE SODIUM 100 MG CAP PO SCH ×2 (09:46→20:35)
[2018-05-03] MEDS: oxyCODONE IR 5 MG TAB PO PRN ×3 (09:53→17:58)
--- NOTE | 2018-05-03 11:02 | SOAPPROG ---
SOAP Progress Note Assessment/Plan: Assessment: DOING WELL/AFEBRILE/WOUND OKAY/URINE OUTPUT DECREASED/STARTING TO EAT POSITIVE FLATUS NO BM YET HEENT NONICTERIC CHEST CLEAR COR REGULAR RHYTHM ABDOMEN SOFT AND NONTENDER WITH HEALING WOUND Plan: HOME IN THE A.M. IF SHE TOLERATES ADVANCING DIET 05/03/18 11:01 Objective: Vital Signs Temp Pulse Resp BP Pulse Ox 36.7 C 63 16 107/67 94 05/03/18 07:47 05/03/18 07:47 05/03/18 07:47 05/03/18 07:47 05/03/18 07:47 Microbiology 04/28/18 05:50 Gram Stain - Final Peritoneal Fluid - Anaerobic Tube/Swab Laboratory Results 05/03/18 04:46 04/30/18 04:36 05/02/18 05/03/18 05/04/18 05:59 05:59 05:59 Intake Total 500 1900 Balance 500 1900 ICD10 Worksheet Patient Problems: Problems Problem Status Onset Diverticulitis Acute Leukocytosis Acute Pneumoperitoneum Acute
--- NOTE | 2018-05-03 16:48 | PCMIDPN ---
Assessment/Plan: Assessment: Colonic perforation from small diverticula. Patient currently being managed on ceftriaxone and Flagyl. Plan is for her to discharge on oral Levaquin and Flagyl tomorrow. I went over her antibiotic course and dosage with her. She has no questions. Plan: 1. Discharge patient tomorrow morning on Levaquin 750 mg p.o. Daily and Flagyl 500 mg p.o. 3 times a day for an additional 7 days. 05/03/18 16:47 Subjective: Patient resting comfortably in her bed. She denies any new complaint. Looking forward to going home tomorrow. Objective: Ceftriaxone Flagyl Vital Signs Temp Pulse Resp BP Pulse Ox 36.4 C 93 16 114/80 95 05/03/18 16:24 05/03/18 16:24 05/03/18 16:24 05/03/18 16:24 05/03/18 16:24 Microbiology 04/28/18 05:50 Gram Stain - Final Peritoneal Fluid - Anaerobic Tube/Swab Laboratory Results 05/03/18 04:46 04/30/18 04:36 05/02/18 05/03/18 05/04/18 05:59 05:59 05:59 Intake Total 500 1900 300 Balance 500 1900 300 - Physical Exam General Appearance: WD/WN, alert, non-toxic Skin: normal color, warm/dry, No rash Neuro/Psych: alert, normal mood/affect, oriented x 3 ICD10 Worksheet Patient Problems: Problems Problem Status Onset Diverticulitis Acute Leukocytosis Acute Pneumoperitoneum Acute
[2018-05-04] MEDS: metroNIDAZOLE 500 MG TAB PO SCH (05:25)
[2018-05-04] MEDS: oxyCODONE IR 5 MG TAB PO PRN (05:25)
[2018-05-04 08:41] VITALS: BP 120/74
--- NOTE | 2018-05-04 11:21 | SOAPPROG ---
SOAP Progress Note Assessment/Plan: Assessment: DOING WELL/AFEBRILE/WOUND OKAY/URINE OUTPUT DECREASED/STARTING TO EAT POSITIVE FLATUS NO BM YET HEENT NONICTERIC CHEST CLEAR COR REGULAR RHYTHM ABDOMEN SOFT AND NONTENDER WITH HEALING WOUND Plan: HOME IN THE A.M. IF SHE TOLERATES ADVANCING DIET 05/03/18 11:01 05/04/18 11:20 DOING WELL/AFEBRILE/WOUND OKAY/POSITIVE BOWEL SOUNDS AND FLATUS/NO BM YET/LUNGS CLEAR/NO EVIDENCE OF DVT IN HER LEGS HOME TODAY/LIMITATIONS DISCUSSED/FOLLOW-UP WITH DR. ELAINE NEXT WEEK FOR SARABJIT REMOVED Objective: Vital Signs Temp Pulse Resp BP Pulse Ox 36.6 C 69 16 120/74 96 05/04/18 08:40 05/04/18 08:40 05/04/18 08:40 05/04/18 08:40 05/04/18 08:40 Microbiology 04/28/18 05:50 Gram Stain - Final Peritoneal Fluid - Anaerobic Tube/Swab Laboratory Results 05/03/18 04:46 04/30/18 04:36 05/03/18 05/04/18 05/05/18 05:59 05:59 05:59 Intake Total 1900 1400 Balance 1900 1400 ICD10 Worksheet Patient Problems: Problems Problem Status Onset Diverticulitis Acute Leukocytosis Acute Pneumoperitoneum Acute
[2018-05-04] MEDS: CYCLOBENZAPRINE 10 MG TAB PO SCH (11:43)
[2018-05-04] MEDS: DOCUSATE SODIUM 100 MG CAP PO SCH (11:43)
== END 2018-05-04 12:38 | disposition home or self-care (01) | DRG 329 ==
LOC: F3E 07:43
PROVIDERS: ADMIT Surgery; ATTEND Surgery
DX: K57.20 Diverticulitis of large intestine with perforation and abscess without bleeding (principal); K65.9 Peritonitis, unspecified; E86.9 Volume depletion, unspecified; Z72.0 Tobacco use
CPT/HCPCS: 96365; J0696; J1170; J1885; J2250; J2405; J2550; J2704; J2765; J3010; Q9967